=== PATIENT | female | born 1965 | race African-American/Black ===

== ENCOUNTER 2020-11-29 09:22 | Emergency (ER) | payer BC ==
[2020-11-29] MEDS ORDERED: ZOFRAN4 MG PO (11:16)
[2020-11-29] MEDS ORDERED: IMITREX25 MG PO (11:16)
[2020-11-29 11:38] LABS: RED BLOOD COUNT 4.71 M/UL (4.00-5.10); WHITE BLOOD COUNT 4.6 K/UL (4.5-11.0)
[2020-11-29 11:53] LABS: BUN/CREATININE RATIO 15 (0-10)
== END 2020-11-29 12:29 | disposition home or self-care (01) ==
LOC: ER1 09:22
PROVIDERS: Physician Assistant
DX: G43.909 Migraine, unspecified, not intractable, without status migrainosus (principal); D64.9 Anemia, unspecified; F17.210 Nicotine dependence, cigarettes, uncomplicated; Z90.710 Acquired absence of both cervix and uterus; Z20.822 Contact with and (suspected) exposure to COVID-19
CPT/HCPCS: 80048; 85025; 96374; 96375; 99283; J1200; J1885; J2405; U0002

== ENCOUNTER 2020-12-12 09:28 | Emergency (ER) | payer BC ==
[~2020-12-12 09:28] MED LIST: IMITREX25 MG PO; ZOFRAN4 MG PO
[2020-12-12 10:31] LABS: HEMOGLOBIN 15.8 gm/dl (12.3-15.3); RED BLOOD COUNT 5.1 M/UL (4.00-5.10); WHITE BLOOD COUNT 6.3 K/UL (4.5-11.0)
[2020-12-12 12:43] LABS: BUN/CREATININE RATIO 23 (0-10)
[2020-12-12] MEDS ORDERED: PEPCID20 MG PO (14:08)
[2020-12-12] MEDS ORDERED: ZOFRAN ODT 4 MG4 MG SL (14:08)
== END 2020-12-12 14:40 | disposition home or self-care (01) ==
LOC: ER1 09:28
PROVIDERS: Emergency Medicine
DX: R10.13 Epigastric pain (principal); F17.210 Nicotine dependence, cigarettes, uncomplicated; Z90.710 Acquired absence of both cervix and uterus; Z20.822 Contact with and (suspected) exposure to COVID-19
CPT/HCPCS: 71045; 80053; 81001; 82550; 82553; 83690; 83874; 84484; 85025; 96365; 96375; 99284; J2405; J7030; U0002

== ENCOUNTER 2021-01-02 15:21 | Inpatient (IN) | payer BC, OTHER ==
[~2021-01-02] VITALS: Ht 162.6 cm; Wt 56.7 kg
[~2021-01-02 15:21] MED LIST changes: +PEPCID20 MG PO; +ZOFRAN ODT 4 MG4 MG SL
[2021-01-02 19:07] LABS: HEMOGLOBIN 11.6 gm/dl (12.3-15.3); RED BLOOD COUNT 3.87 M/UL (4.00-5.10); WHITE BLOOD COUNT 13.1 K/UL (4.5-11.0)
[2021-01-02 19:34] LABS: BUN/CREATININE RATIO 27 (0-10)
[2021-01-03 07:30] LABS: HEMOGLOBIN 10.9 gm/dl (12.3-15.3); RED BLOOD COUNT 3.84 M/UL (4.00-5.10); WHITE BLOOD COUNT 11.3 K/UL (4.5-11.0)
[2021-01-03 08:13] LABS: BUN/CREATININE RATIO 21 (0-10)
[2021-01-04 05:09] LABS: HBSAG SCREEN Negative (Negative); HEP A AB, IGM Negative (Negative); HEP B CORE AB, IGM Negative (Negative); HEP C VIRUS AB 0.2 (0.0-0.9)
[2021-01-04 09:52] LABS: HEMOGLOBIN 10.4 gm/dl (12.3-15.3); RED BLOOD COUNT 3.51 M/UL (4.00-5.10); WHITE BLOOD COUNT 11.3 K/UL (4.5-11.0)
[2021-01-04 10:27] LABS: BUN/CREATININE RATIO 7 (0-10)
[2021-01-05 05:09] LABS: HIV SCREEN 4TH GENERATION WRFX Non Reactive (Non Reactive)
[2021-01-05 08:03] LABS: HEMOGLOBIN 12.5 gm/dl (12.3-15.3); RED BLOOD COUNT 4.36 M/UL (4.00-5.10); WHITE BLOOD COUNT 12.1 K/UL (4.5-11.0)
[2021-01-05 09:27] LABS: BUN/CREATININE RATIO 8 (0-10)
[2021-01-06 04:10] LABS: WHITE BLOOD COUNT 11.3 K/UL (4.5-11.0)
[2021-01-06 04:18] LABS: HEMOGLOBIN 10.2 gm/dl (12.3-15.3); RED BLOOD COUNT 3.52 M/UL (4.00-5.10)
[2021-01-06 04:52] LABS: BUN/CREATININE RATIO 13 (0-10)
[2021-01-06] MEDS ORDERED: [UNRECOGNIZED DRUG - OTHER] MC (11:48)
[2021-01-06] MEDS ORDERED: BUDESONIDE0.5 MG/2 M NEB (11:48)
[2021-01-06] MEDS ORDERED: LEVOFLOXACIN750 MG PO (11:48)
[2021-01-06] MEDS ORDERED: MEDROL DOSEPAK 24 MG PO (11:48)
[2021-01-06] MEDS ORDERED: AUGMENTIN 875-1 EACH PO (11:48)
[2021-01-06] MEDS ORDERED: IPRAT-ALBUT 0.5-3 ML NEB (11:48)
[2021-01-06] MEDS ORDERED: FLORASTOR250 MG PO (11:48)
[2021-01-06] MEDS ORDERED: FERROUS SULFAT325 M2 PO (12:11)
[2021-01-06] MEDS ORDERED: ENSURE CLEAR237 ML PO (12:11)
[2021-01-06] MEDS ORDERED: SODIUM BICARBO650 MG PO (12:58)
== END 2021-01-06 15:24 | disposition home or self-care (01) | DRG 871 ==
LOC: ER1 15:21 → MED SURG 4 21:06 → CDU 21:06 → MED SURG 4 01-03 00:55
PROVIDERS: Internal Medicine; Nurse Practitioner; ADMIT Internal Medicine
DX: A40.9 Streptococcal sepsis, unspecified (principal); E43 Unspecified severe protein-calorie malnutrition; J15.4 Pneumonia due to other streptococci; J44.0 Chronic obstructive pulmonary disease with (acute) lower respiratory infection; E87.1 Hypo-osmolality and hyponatremia; Z20.822 Contact with and (suspected) exposure to COVID-19; E87.6 Hypokalemia; D50.9 Iron deficiency anemia, unspecified; F17.210 Nicotine dependence, cigarettes, uncomplicated; Z90.710 Acquired absence of both cervix and uterus; Z87.59 Personal history of other complications of pregnancy, childbirth and the puerperium; Z82.49 Family history of ischemic heart disease and other diseases of the circulatory system; Z85.3 Personal history of malignant neoplasm of breast; Z68.20 Body mass index [BMI] 20.0-20.9, adult
CPT/HCPCS: 36415; 71045; 71250; 80048; 80053; 80074; 80202; 83036; 83540; 83550; 83605; 83880; 84439; 84443; 85025; 86140; 87040; 87081; 87389; 87880; 93005; 94640; 94664; 94760; 96374; 96375; 99285; G0378; J0456; J0692; J0696; J1650; J1756; J2930; J3370; J3480; J7030; J7050; U0002

== ENCOUNTER → 2021-01-12 | Outpatient (CLI) | payer BC ==
[~2021-01-12] MED LIST changes: +AUGMENTIN 875-1 EACH PO; +BUDESONIDE0.5 MG/2 M NEB; +ENSURE CLEAR237 ML PO; +FERROUS SULFAT325 M2 PO; +FLORASTOR250 MG PO; +IPRAT-ALBUT 0.5-3 ML NEB; +LEVOFLOXACIN750 MG PO; +MEDROL DOSEPAK 24 MG PO; +SODIUM BICARBO650 MG PO; +[UNRECOGNIZED DRUG - OTHER] MC
== END ==
LOC: OPSV 15:08
DX: D50.9 Iron deficiency anemia, unspecified (principal)
CPT/HCPCS: 96365; J1439; J7030

== ENCOUNTER → 2021-01-19 | Outpatient (CLI) | payer BC ==
[~2021-01-19] VITALS: Ht 175.3 cm; Wt 56.7 kg
== END ==
LOC: OPSV 13:00
DX: D50.9 Iron deficiency anemia, unspecified (principal)
CPT/HCPCS: 96365; J1439